=== PATIENT | female | born 1945 ===

== ENCOUNTER 2022-01-18 17:05 | Emergency (ER) | payer MEDICARE ==
[~2022-01-18] VITALS: Ht 152.4 cm; Wt 79.8 kg
[~2022-01-18 17:05] MED LIST: ALLO100T PO; AMLO-258 PO; ERGO50CA PO; FAMO20TA8 PO; GLIM4TAB36 PO; LEVO-170 PO; LOSA100T58 PO; MAGN250T10 PO; METF-446 PO; NEBI10TA PO; PRAV40TA3 PO
[2022-01-18] MEDS ORDERED: ALTEPLASE 100 MG VIAL IVP ONE (17:06)
[2022-01-18 17:20] LABS: BASOPHILS % (AUTO) 0.6 % (0.0-5.0); EOSINOPHILS % (AUTO) 8.5 % (0.0-8.0); HEMATOCRIT 37.9 % (36-48); MEAN CORPUSCULAR HEMOGLOBIN 30.8 pg (27.0-33.0); MEAN CORPUSCULAR HGB CONC 32.5 g/dL (32.0-36.0); NEUTROPHILS % (AUTO) 51.3 % (40.0-77.0); PLATELET COUNT (AUTO) 272 K/uL (130-400); RED BLOOD CELL COUNT(AUTO) 3.99 MIL/uL (4.00-5.50); RED CELL DISTRIBUTION WIDTH 18.5 % (11.0-15.5); WHITE BLOOD COUNT (AUTO) 6.8 K/uL (4.8-10.8)
[2022-01-18 17:29] LABS: CREATININE 1.3 mg/dL (0.5-1.5); POTASSIUM 4.4 mmol/L (3.5-5.1)
[2022-01-18 17:32] LABS: INR 0.93 (0.85-1.15); PROTHROMBIN TIME 10.1 SEC (9.6-11.6)
[2022-01-18 17:33] LABS: PARTIAL THROMBOPLASTIN TIME 28.3 SEC (26.3-35.5)
[2022-01-18 17:34] LABS: ALBUMIN 3.1 g/dL (3.5-5.0); TOTAL PROTEIN, SERUM 7.3 g/dL (6.0-8.3)
[2022-01-18] MEDS ORDERED: ONDANSETRON 4MG INJ ONE (18:17)
[2022-01-18] MEDS ORDERED: PROPOFOL 1000 MG/100 ML 100 ML IV ONE (19:15)
[2022-01-18] MEDS ORDERED: ETOMIDATE 20MG VIAL IVP SCH (19:17)
[2022-01-18] MEDS ORDERED: SUCCINYLCHOLINE 200MG/10ML SYR IVP SCH (19:19)
[2022-01-18] MEDS ORDERED: IOHEXOL 350 MG/ML 100ML INFUS..BTL IV ONE (19:41)
[2022-01-18] MEDS ORDERED: PROPOFOL 1000 MG/100 ML 100 ML IV SCH (20:00)
[2022-01-18] MEDS ORDERED: 0.9%NACL 1000ML 1,000 ML IV ONE (20:00)
[2022-01-18 20:30] LABS: ABG BASE EXCESS -2.8 mmol/L (-2.0-3.0); ABG HCO3 21.7 mmol/L (21.0-28.0); ABG OXYGEN SATURATION 99.6 % (95.0-99.0); ABG PCO2 37 mmHg (32-45)
[2022-01-18 21:48] VITALS: BP 112/53
== END 2022-01-18 22:47 | disposition short-term general hospital (02) ==
LOC: EDH 17:05
DX: I63.9 Cerebral infarction, unspecified (principal); I48.91 Unspecified atrial fibrillation; I11.0 Hypertensive heart disease with heart failure; I50.9 Heart failure, unspecified; R41.82 Altered mental status, unspecified; E11.9 Type 2 diabetes mellitus without complications; E78.00 Pure hypercholesterolemia, unspecified; E03.9 Hypothyroidism, unspecified; M10.9 Gout, unspecified; Z20.822 Contact with and (suspected) exposure to COVID-19; Z79.899 Other long term (current) drug therapy; Z79.84 Long term (current) use of oral hypoglycemic drugs; Z98.890 Other specified postprocedural states
CPT/HCPCS: 84484; 80053; 82803; 85025; 85610; 85730; 36415; 87635; 71045; 70450 ×2; 70496; 70498; 99291; 96360; 37195; 93005; 94002; 31500; 36600; C9803; J0330; J2704; J2405; J2997; Q9967; A9900